=== PATIENT | female | born 1985 | race Two or more races ===

== ENCOUNTER 2016-08-26 20:48 | Emergency (ER) | payer MEDICAID ==
[~2016-08-26 20:48] MED LIST: BENADRYL25 M3 PO; BIRTH CONTROL PILL; DELTASONE20 MG PO; FOLGARD TABLET1 EAC1 PO; IMPLANON; IRON; SYNTHROID88 MC1
[2016-08-26] MEDS ORDERED: NORCO 5-325 TA1 EACH PO (22:28)
== END 2016-08-26 22:36 ==
LOC: EDMED 20:48
DX: M25.512 Pain in left shoulder (principal)
CPT/HCPCS: J1885